=== PATIENT | male | born 1935 | race Caucasian/White ===

== ENCOUNTER 2017-07-20 06:53 | Day surgery (SDC) | payer MEDICARE, OTHER ==
[2017-07-19 10:10] LABS: BASOPHILS % (AUTO) 0.5 % (0-1); EOSINOPHILS # (AUTO) 0.2 X10'3 (0-0.9); EOSINOPHILS % (AUTO) 3.5 % (0-6); HEMATOCRIT 41.8 % (42.0-52.0); HEMOGLOBIN 14.5 g/dl (14.0-17.9); LYMPHOCYTES # (AUTO) 1.3 X10'3 (1.1-4.8); LYMPHOCYTES % (AUTO) 30.6 % (21-51); MEAN CORPUSCULAR HEMOGLOBIN 34.6 PG (27.0-31.0); MEAN CORPUSCULAR HGB CONC 34.7 % (33.0-36.5); MEAN CORPUSCULAR VOLUME 99.8 FL (78-98); MEAN PLATELET VOLUME 9.4 FL (7.4-10.4); MONOCYTES # (AUTO) 0.5 X10'3 (0-0.9); MONOCYTES % (AUTO) 10.3 % (2-12); NEUTROPHILS # (AUTO) 2.4 X10'3 (1.8-7.7); NEUTROPHILS % (AUTO) 55.1 % (42-75); PLATELET COUNT 179 X10'3 (140-440); RED BLOOD COUNT 4.19 X10'6 (4.70-6.10); RED CELL DISTRIBUTION WIDTH 13.9 % (11.5-14.5); WHITE BLOOD COUNT 4.4 X10'3 (4.5-11.0)
[2017-07-19 10:19] LABS: INR 1.4 INR
[2017-07-19 10:22] LABS: ALBUMIN 3.5 G/DL (3.4-5.0); ANION GAP 9 (8-16); BLOOD UREA NITROGEN 18 MG/DL (7-18); BUN/CREATININE RATIO 13.8 (5.4-32.0); CALCIUM 9.2 MG/DL (8.5-10.1); CHLORIDE 107 MMOL/L (99-107); GLUCOSE 160 MG/DL (70-104); POTASSIUM 4.3 MMOL/L (3.5-5.1); SODIUM 142 MMOL/L (135-145); TOTAL CARBON DIOXIDE 25.9 MMOL/L (24-32); eGFR 53 ML/MIN
[2017-07-20] VITALS (13 sets, daily range): BP systolic 120–139; BP diastolic 67–90
[~2017-07-20] VITALS: Ht 180.3 cm; Wt 84.4 kg
[2017-07-20] MEDS ORDERED: diphenhydrAMINE 25mg capsule PO ONE (07:25)
[2017-07-20] MEDS ORDERED: atropine 0.1mg/ml 10ml syringe IV ONE (07:25)
[2017-07-20] MEDS ORDERED: morphine 10mg/ml inj. IV ONE (07:25)
[2017-07-20] MEDS ORDERED: amiodarone in dextrose, iso-osm 150mg/100ml bag IV ONE (07:25)
[2017-07-20] MEDS ORDERED: normal saline 1000ml 1,000 ML IV SCH (07:25)
[2017-07-20] MEDS ORDERED: MIDAZolam 5mg/ml 2ml vial IV ONE (07:25)
[2017-07-20] MEDS ORDERED: LORazepam 0.5 MG tablet PO ONE (07:25)
[2017-07-20] MEDS ORDERED: DABI150C PO (08:28)
[2017-07-20] MEDS ORDERED: LEVO50TA8 PO (08:28)
[2017-07-20] MEDS ORDERED: ASPI-1265 PO (08:28)
[2017-07-20] MEDS ORDERED: PIOG30TA27 PO (08:28)
[2017-07-20] MEDS ORDERED: METF850T2 PO (08:28)
[2017-07-20] MEDS ORDERED: CALC600T12 PO (08:28)
[2017-07-20] MEDS ORDERED: MULT-38 PO (08:28)
[2017-07-20] MEDS ORDERED: SOTA80TA69 PO (08:28)
== END 2017-07-20 11:10 | disposition home or self-care (01) ==
LOC: SSTAY O 06:53
PROVIDERS: ATTEND Internal Medicine Cardiovascular Disease
DX: I48.1 Persistent atrial fibrillation (principal); E11.9 Type 2 diabetes mellitus without complications; E78.5 Hyperlipidemia, unspecified; F41.9 Anxiety disorder, unspecified; F32.9 Major depressive disorder, single episode, unspecified; Z79.82 Long term (current) use of aspirin; Z90.49 Acquired absence of other specified parts of digestive tract; Z79.01 Long term (current) use of anticoagulants; Z98.890 Other specified postprocedural states; Z87.891 Personal history of nicotine dependence
CPT/HCPCS: 36415; 80048; 82948; 85025; 85610; 92960; 93005; J0282; J2250; J2270; J7030; Q0163; A4620; J0461

== ENCOUNTER 2017-09-27 07:51 | Day surgery (SDC) | payer MEDICARE, OTHER ==
[2017-09-26 11:09] LABS: ALBUMIN 3.7 G/DL (3.4-5.0); ANION GAP 11 (8-16); BLOOD UREA NITROGEN 27 MG/DL (7-18); BUN/CREATININE RATIO 18.1 (5.4-32.0); CALCIUM 10.1 MG/DL (8.5-10.1); CHLORIDE 105 MMOL/L (99-107); CREATININE 1.49 MG/DL (0.60-1.10); GLUCOSE 173 MG/DL (70-104); INR 1.5 INR; PARTIAL THROMBOPLASTIN TIME 43 SECONDS (22-32); POTASSIUM 4.1 MMOL/L (3.5-5.1); PROTHROMBIN TIME 15.3 SECONDS (9.0-12.0); SODIUM 139 MMOL/L (135-145); TOTAL CARBON DIOXIDE 23.5 MMOL/L (24-32); eGFR 45 ML/MIN
[2017-09-26 11:16] LABS: BASOPHILS % (AUTO) 0.2 % (0-1); EOSINOPHILS # (AUTO) 0.1 X10'3 (0-0.9); EOSINOPHILS % (AUTO) 1.4 % (0-6); HEMATOCRIT 41.5 % (42.0-52.0); HEMOGLOBIN 14.5 g/dl (14.0-17.9); LYMPHOCYTES # (AUTO) 1.4 X10'3 (1.1-4.8); LYMPHOCYTES % (AUTO) 23.2 % (21-51); MEAN CORPUSCULAR HEMOGLOBIN 34.3 PG (27.0-31.0); MEAN PLATELET VOLUME 9.8 FL (7.4-10.4); MONOCYTES # (AUTO) 0.6 X10'3 (0-0.9); MONOCYTES % (AUTO) 9.3 % (2-12); NEUTROPHILS # (AUTO) 4.1 X10'3 (1.8-7.7); NEUTROPHILS % (AUTO) 65.9 % (42-75); PLATELET COUNT 183 X10'3 (140-440); RED BLOOD COUNT 4.23 X10'6 (4.70-6.10); RED CELL DISTRIBUTION WIDTH 14.5 % (11.5-14.5); WHITE BLOOD COUNT 6.2 X10'3 (4.5-11.0)
[~2017-09-27] VITALS: Ht 180.3 cm; Wt 77.0 kg
[2017-09-27] VITALS (11 sets, daily range): BP systolic 94–122; BP diastolic 56–86
[~2017-09-27 07:51] MED LIST: ASPI-1265 PO; CALC600T12 PO; DABI150C PO; LEVO50TA8 PO; METF850T2 PO; MULT-38 PO; PIOG30TA71 PO; SOTA80TA73 PO
[2017-09-27] MEDS ORDERED: DIPH25CA83 PO (08:09)
[2017-09-27] MEDS ORDERED: normal saline 1000ml 1,000 ML IV SCH (08:10)
[2017-09-27] MEDS ORDERED: MIDAZolam 5mg/ml 2ml vial IV ONE (08:10)
[2017-09-27] MEDS ORDERED: atropine 0.1mg/ml 10ml syringe IV ONE (08:10)
[2017-09-27] MEDS ORDERED: diphenhydrAMINE 25mg capsule PO ONE (08:10)
[2017-09-27] MEDS ORDERED: LORazepam 0.5 MG tablet PO ONE (08:10)
[2017-09-27] MEDS ORDERED: morphine 10mg/ml inj. IV ONE (08:10)
[2017-09-27] MEDS ORDERED: amiodarone 150mg/dext, iso-os 100 ML IV ONE (08:10)
== END 2017-09-27 13:20 | disposition home or self-care (01) ==
LOC: SSTAY O 07:51
PROVIDERS: ATTEND Internal Medicine Cardiovascular Disease
DX: I48.1 Persistent atrial fibrillation (principal); E78.5 Hyperlipidemia, unspecified; E11.9 Type 2 diabetes mellitus without complications; I34.0 Nonrheumatic mitral (valve) insufficiency; F32.9 Major depressive disorder, single episode, unspecified; F41.8 Other specified anxiety disorders; M19.90 Unspecified osteoarthritis, unspecified site; I45.81 Long QT syndrome; Z87.891 Personal history of nicotine dependence; Z72.89 Other problems related to lifestyle; Z79.01 Long term (current) use of anticoagulants; Z90.49 Acquired absence of other specified parts of digestive tract; Z79.84 Long term (current) use of oral hypoglycemic drugs; Z79.82 Long term (current) use of aspirin; Z79.899 Other long term (current) drug therapy; Z98.890 Other specified postprocedural states
CPT/HCPCS: 36415; 80048; 82948; 85025; 85610; 85730; 92960; 93005; J2250; J2270; J7030; Q0163; J0282; J0461

== ENCOUNTER 2019-03-13 07:51 | Day surgery (SDC) | payer MEDICARE, OTHER ==
[2019-03-12 10:09] LABS: BASOPHILS % (AUTO) 0.4 % (0-1); EOSINOPHILS # (AUTO) 0.2 X10'3 (0-0.9); EOSINOPHILS % (AUTO) 4.7 % (0-6); HEMATOCRIT 39.8 % (42.0-52.0); HEMOGLOBIN 13.5 g/dl (14.0-17.9); LYMPHOCYTES # (AUTO) 1.4 X10'3 (1.1-4.8); LYMPHOCYTES % (AUTO) 28.5 % (21-51); MEAN CORPUSCULAR HEMOGLOBIN 30.6 PG (27.0-31.0); MEAN CORPUSCULAR HGB CONC 33.8 g/dL (33.0-36.5); MEAN CORPUSCULAR VOLUME 90.5 FL (78-98); MONOCYTES # (AUTO) 0.5 X10'3 (0-0.9); NEUTROPHILS # (AUTO) 2.6 X10'3 (1.8-7.7); NEUTROPHILS % (AUTO) 55.4 % (42-75); PLATELET COUNT 200 X10'3 (140-440); RED CELL DISTRIBUTION WIDTH 13.4 % (11.5-14.5); WHITE BLOOD COUNT 4.8 X10'3 (4.5-11.0)
[2019-03-12 10:18] LABS: ALBUMIN 3.7 G/DL (3.4-5.0); ANION GAP 8 (8-16); BLOOD UREA NITROGEN 25 MG/DL (7-18); BUN/CREATININE RATIO 18.5 (5.4-32.0); CALCIUM 9.7 MG/DL (8.5-10.1); CHLORIDE 107 MMOL/L (99-107); CREATININE 1.35 MG/DL (0.60-1.10); GLUCOSE 164 MG/DL (70-104); POTASSIUM 4.3 MMOL/L (3.5-5.1); SODIUM 141 MMOL/L (135-145); TOTAL CARBON DIOXIDE 25.9 MMOL/L (24-32); eGFR 51 ML/MIN
[2019-03-13] VITALS (16 sets, daily range): BP systolic 96–138; BP diastolic 57–93
[~2019-03-13] VITALS: Ht 180.3 cm; Wt 85.0 kg
[~2019-03-13 07:51] MED LIST changes: +DIPH25CA83 PO; +METF-437 PO; -METF850T2 PO
[2019-03-13] MEDS ORDERED: diphenhydrAMINE 25mg capsule PO ONE (08:25)
[2019-03-13] MEDS ORDERED: MIDAZolam 5mg/ml 2ml vial IV ONE (08:25)
[2019-03-13] MEDS ORDERED: amiodarone in dextrose, iso-osm 150mg/100ml bag IV ONE (08:25)
[2019-03-13] MEDS ORDERED: morphine 10mg/ml inj. IV ONE (08:25)
[2019-03-13] MEDS ORDERED: LORazepam 0.5 MG tablet PO ONE (08:25)
[2019-03-13] MEDS ORDERED: atropine 0.1mg/ml 10ml syringe IV ONE (09:20)
== END 2019-03-13 13:10 | disposition home or self-care (01) ==
LOC: SSTAY O 07:51
PROVIDERS: ATTEND Internal Medicine Cardiovascular Disease
DX: I48.0 Paroxysmal atrial fibrillation (principal); E11.9 Type 2 diabetes mellitus without complications; G47.30 Sleep apnea, unspecified; F41.9 Anxiety disorder, unspecified; F32.9 Major depressive disorder, single episode, unspecified; Z98.890 Other specified postprocedural states
CPT/HCPCS: 36415; 80048; 82948; 85025; 85610; 92960; 93005; J0282; J0461; J2250; J2270; Q0163

== ENCOUNTER 2020-08-25 07:05 | Day surgery (SDC) | payer MEDICARE, OTHER ==
[2020-08-24 10:04] LABS: BASOPHILS % (AUTO) 0.5 % (0-1); EOSINOPHILS # (AUTO) 0.2 X10'3 (0-0.9); EOSINOPHILS % (AUTO) 4.4 % (0-6); HEMATOCRIT 33.4 % (42.0-52.0); HEMOGLOBIN 10.9 g/dl (14.0-17.9); LYMPHOCYTES # (AUTO) 1.1 X10'3 (1.1-4.8); LYMPHOCYTES % (AUTO) 23.1 % (21-51); MEAN CORPUSCULAR HEMOGLOBIN 26.3 PG (27.0-31.0); MEAN CORPUSCULAR HGB CONC 32.7 g/dL (33.0-36.5); MEAN CORPUSCULAR VOLUME 80.4 FL (78-98); MEAN PLATELET VOLUME 8.6 FL (7.4-10.4); MONOCYTES # (AUTO) 0.5 X10'3 (0-0.9); NEUTROPHILS # (AUTO) 2.8 X10'3 (1.8-7.7); PLATELET COUNT 184 X10'3 (140-440); RED BLOOD COUNT 4.15 X10'6 (4.70-6.10); RED CELL DISTRIBUTION WIDTH 16.2 % (11.5-14.5); WHITE BLOOD COUNT 4.6 X10'3 (4.5-11.0)
[2020-08-24 10:23] LABS: ALANINE AMINOTRANSFERASE 23 U/L (12-78); ALBUMIN 3.8 G/DL (3.4-5.0); ALBUMIN/GLOBULIN RATIO 1.2 (1.1-1.5); ALKALINE PHOSPHATASE 76 IU/L (46-116); ANION GAP 9 (8-16); ASPARTATE AMINO TRANSFERASE 14 U/L (10-37); BILIRUBIN,TOTAL 0.6 MG/DL (0.1-1.0); BLOOD UREA NITROGEN 26 MG/DL (7-18); BUN/CREATININE RATIO 19.8 (5.4-32.0); CALCIUM 9.6 MG/DL (8.5-10.1); CHLORIDE 107 MMOL/L (99-107); CREATININE 1.31 MG/DL (0.60-1.10); GLUCOSE 153 MG/DL (70-104); POTASSIUM 4.3 MMOL/L (3.5-5.1); SODIUM 140 MMOL/L (135-145); TOTAL CARBON DIOXIDE 24.3 MMOL/L (24-32); TOTAL PROTEIN 6.9 G/DL (6.4-8.2); eGFR 52 ML/MIN
[2020-08-25] VITALS (9 sets, daily range): BP systolic 101–128; BP diastolic 65–88
[~2020-08-25] VITALS: Ht 180.3 cm; Wt 77.2 kg
[~2020-08-25 07:05] MED LIST changes: -CALC600T12 PO; +CALC600T35 PO; -DIPH25CA83 PO
[2020-08-25] MEDS ORDERED: amiodarone 150mg/dext, iso-os 100 ML IV ONE (07:30)
[2020-08-25] MEDS ORDERED: morphine 10mg/ml inj. IV ONE (07:30)
[2020-08-25] MEDS ORDERED: atropine 0.1mg/ml 10ml syringe IV ONE (07:30)
[2020-08-25] MEDS ORDERED: diphenhydrAMINE 25mg capsule PO ONE (07:30)
[2020-08-25] MEDS ORDERED: MIDAZolam 1mg/ml 10ml vial IV ONE (07:30)
[2020-08-25] MEDS ORDERED: normal saline 1000ml 1,000 ML IV PRN (07:30)
[2020-08-25] MEDS ORDERED: LORazepam 0.5 MG tablet PO ONE (07:30)
[2020-08-25] MEDS ORDERED: ATOR40TA PO (08:03)
[2020-08-25] MEDS ORDERED: CALC600T45 PO (08:03)
== END 2020-08-25 12:00 | disposition home or self-care (01) ==
LOC: SSTAY O 07:05
PROVIDERS: ATTEND Internal Medicine Cardiovascular Disease
DX: I48.19 Other persistent atrial fibrillation (principal); E78.5 Hyperlipidemia, unspecified; E11.9 Type 2 diabetes mellitus without complications; G47.33 Obstructive sleep apnea (adult) (pediatric); F32.9 Major depressive disorder, single episode, unspecified; F41.9 Anxiety disorder, unspecified; I34.0 Nonrheumatic mitral (valve) insufficiency; I73.9 Peripheral vascular disease, unspecified; Z98.890 Other specified postprocedural states; Z79.84 Long term (current) use of oral hypoglycemic drugs; Z79.899 Other long term (current) drug therapy; Z87.891 Personal history of nicotine dependence; Z72.89 Other problems related to lifestyle; Z81.1 Family history of alcohol abuse and dependence; Z80.6 Family history of leukemia
CPT/HCPCS: 36415; 80053; 82948; 85025; 92960; 93005; 94799; J2250; J2270; J7030

== ENCOUNTER 2025-02-01 14:31 | Emergency (ER) | payer MEDICARE, OTHER ==
[~2025-02-01] VITALS: Ht 180.3 cm; Wt 94.9 kg
[~2025-02-01 14:31] MED LIST changes: +ATOR40TA PO; -CALC600T35 PO; +CALC600T45 PO
--- NOTE | 2025-02-01 14:53 | ELECTROCARDIOGRAPH REPORT ---
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 JULIET Hutchinson Measurements Intervals [place] Rate: 105 P: 0 MT: 0 QRS: 50 QRSD: 99 T: 0 QT: 351 QTc: 465 Interpretive Statements Atrial fibrillation Anterior infarct, old Nonspecific T abnormalities, lateral leads Electronically Signed On 02-02-2025 13:09:[address] JULIET Hutchinson Please click the below link to view image of tracing.
--- NOTE | 2025-02-01 15:26 | Physician Documentation ---
History of Present Illness ~ Chief Complaint: Mechanical Fall Stated Complaint: GROUND LEVEL FALL Time Seen by MD: 14:56 HPI The patient is an 89-year-old male with a history of paroxysmal atrial fibrillation (takes Pradaxa and aspirin) and hypertension who slipped while get ting out of the shower, falling backward and striking his head and lower back. He is complaining of severe low back pain. There was no loss of consciousness. Medication Reconciliation Allergies: Coded Allergies: No Known Allergies (Unverified , 08/11/09) Scheduled Aspirin (Aspirin), 1 TAB.CHEW PO DAILY, (Reported) Atorvastatin Calcium* (Lipitor*), 1 TAB PO DAILY, (Reported) Calcium Carbonate (Calcium), 1 TAB PO DAILY, (Reported) Dabigatran Etexilate Mesylate (Pradaxa), 1 CAP PO BID, (Reported) Levothyroxine Sodium (Levothyroxine Sodium), 1 TAB PO DAILY, (Reported) Metformin Hcl (Metformin Hcl), 1 TAB PO Q12H, (Reported) Multivitamin (Daily Multiple Vitamin), 1 TAB PO DAILY, (Reported) Pioglitazone Hcl (Pioglitazone Hcl), 1 TAB PO DAILY, (Reported) Sotalol Hcl* (Betapace*), 80 MG PO BID, (Reported) Review of Systems ROS Constitutional: Denies chills, fatigue, fever, weight gain or weight loss. HEENT: Denies hearing loss, sinus pressure or visual changes. Respiratory: Denies cough, shortness of breath or wheezing. Cardiovascular: Chronic by pedal edema and edema of the right upper extremity. Gastrointestinal: Denies abdominal pain, blood in stool, constipation, diarrhea, heartburn, loss of appetite, nausea or vomiting. Genitourinary: Denies painful urination (dysuria), excessive amount of urine (polyuria) or urinary frequency. Metabolic/Endocrine: Denies cold intolerance, heat intolerance, excessive thirst (polydipsia) or excessive hunger (polyphagia). Neurological: Denies dizziness, extremity numbness, extremity weakness, headaches, seizures or tremors. Psychiatric: Denies anxiety or depression. Integumentary: Denies breast discharge, breast lump, hives, mole change(s), rash or skin lesion. Musculoskeletal: Complaining of severe low back pain and pain posteriorly over the lower ribcage Hematologic: Denies easily bleeding, easily bruises, lymphedema or issues with blood clots. Immunologic: Denies food allergies or seasonal allergies. Physical Exam Vital Signs: Temperature: 98.3, Source: Oral, Heart Rate: 102, Respiratory Rate: 22, BP: 169/117, Pulse Oximetry: 97, Weight: 94.900 Oxygen Flow Rate: 0 Physical Exam Physical Exam Vitals and nursing note reviewed. Constitutional: General: Patient is awake, alert, oriented x 4 in no acute distress and well appearing. Speech is clear and lucid. Appearance: Normal appearance. Patient is not ill-appearing, toxic-appearing or diaphoretic. HENT: Head: Normocephalic and atraumatic. Mouth/Throat: Mouth: Mucous membranes are moist. Pharynx: Oropharynx is clear. Eyes: General: No scleral icterus. Extraocular Movements: Extraocular movements intact. Pupils: Pupils are equal, round, and reactive to light. Neck: Supple, no Kernig or Brudzinski sign. Cardiovascular: Rate and Rhythm: Normal rate and regular rhythm. Heart sounds: No murmur heard. Pulmonary: Effort: No respiratory distress. Breath sounds: No wheezing, rhonchi or rales. Abdominal: General: There is no distension. Palpations: There is no fluid wave, hepatomegaly or mass. Tenderness: There is no abdominal tenderness. There is no guarding. Musculoskeletal: General: Tenderness over the lower lumbar area and posterior lower ribcage. Skin: Coloration: Skin is not jaundiced. Findings: No erythema or rash. Neurological: Mental Status: Patient is alert. Progress Results/Orders Results/Orders Orders - DEVAUGHN BRITTON DO Hs Troponin I W Calculations (02/01/25 21:30) Completed Orders - DEVAUGHN BRITTON DO Hs Troponin I W Calculations (02/01/25 19:30) Medications Received in ER Medications (Trade) Dose Ordered Sig/Verito Route PRN Reason Start Time Stop Time Status Last Admin Dose Admin (morphine inj.) 4 mg ONCE STAT IV 02/01/25 16:11 02/01/25 16:16 DC 02/01/25 16:26 4 MG (Zofran 4mg/2ml vial) 4 mg ONCE STAT IV 02/01/25 16:11 02/01/25 16:17 DC 02/01/25 16:24 4 MG Vital Signs 02/01/25 02/01/25 02/01/25 02/01/25 14:36 14:45 16:26 16:31 Temp 98.3 Pulse 102 103 Resp 22 18 16 12 B/P (MAP) 169/117 175/133 (147) Pulse Ox 97 95 O2 Flow Rate 0 02/01/25 02/01/25 02/01/25 02/01/25 18:03 18:05 18:49 20:32 Temp 98.3 98.3 Pulse 95 106 89 Resp 16 11 12 12 B/P (MAP) 173/104 (127) 158/102 (120) 164/106 (125) Pulse Ox 95 95 95 O2 Flow Rate 0 0 Laboratory Tests Test 02/01/25 15:34 02/01/25 19:40 White Blood Count 6.6 Red Blood Count 3.87 L Hemoglobin 13.5 L Hematocrit 39.2 L Mean Corpuscular Volume 101.2 H Mean Corpuscular Hemoglobin 34.9 H Mean Corpuscular Hemoglobin Concent 34.5 Red Cell Distribution Width 14.7 H Platelet Count 158 Mean Platelet Volume 8.2 Neutrophils (%) (Auto) 78.6 H Lymphocytes (%) (Auto) 10.1 L Monocytes (%) (Auto) 9.5 Eosinophils (%) (Auto) 1.5 Basophils (%) (Auto) 0.3 Neutrophils # (Auto) 5.2 Lymphocytes # (Auto) 0.7 L Monocytes # (Auto) 0.6 Eosinophils # (Auto) 0.1 Basophils # (Auto) 0.0 CBC Comment Prothrombin Time 16.8 H INR International Normalized Ratio 1.7 Coagulation Comments Sodium Level 138 Potassium Level 4.5 Chloride Level 107 Carbon Dioxide Level 24.6 Anion Gap 6 L Blood Urea Nitrogen 26 H Creatinine 1.35 H Estimated GFR/1.73 m2 50 BUN/Creatinine Ratio 19.3 Glucose Level 154 H Lactic Acid Level 0.8 Calcium Level 9.5 Magnesium Level 1.3 L Total Bilirubin 0.8 Aspartate Amino Transf (AST/SGOT) 17 Alanine Aminotransferase (ALT/SGPT) 27 Alkaline Phosphatase 91 Pro-B-Type Natriuretic Peptide 1444 H Total Protein 7.0 Albumin 3.8 Globulin 3.2 Albumin/Globulin Ratio 1.2 Lipase 59 Chemistry Comments Troponin I High Sensitivity 6 Medical Decision Making Additional information obtaine: family Findings See additional comments for Dr. Britton's medical decision-making Differential Dx:Considerations: Include: Closed head injury, Fracture(s), I ntraabdominal injury, Pneumothorax, Cerebral contusion, Pulmonary contusion, Spine injury, Abrasion(s), Contusion(s), Hematoma(s); Unlikely: Cardiac injury, Tracheal injury, Urological injury, Vascular injury, Foreign body(s), Laceration(s), Encephalopathy Departure Disposition: 01 HOME / SELF CARE / HOMELESS Impression: Primary Impression: Ground-level fall Additional Impressions: Acute traumatic pain T12 vertebral fracture Condition: Fair Discharge Instructions: Thoracic Spine Fracture Referrals: ROSALINDA TIPTON MD 2 days Please follow-up with the neurosurgeon for your T12 fracture. Wear TLSO as instructed. Education Educated: Patient Educated regarding: diagnosis, treatment, prognosis, need for follow up Additional Comment Additional Comment Date: Feb 01, 2025 Time: 20:30 Additional note by Devaughn Britton, DO: I took over the care of this patient from previous physician. I reviewed any previous notes available, obtain my own history, review of systems and physical examination was performed by myself. In brief, this is a 89-year-old gentleman with a anticoagulation with the Pradaxa secondary to paroxysmal AFib, presented for evaluation of potential injuries sustained in a mechanical ground level fall. This is a complains of low back pain. He was signed out pending imaging. CT head shows no acute intracranial bleed. CT C-spine shows no fracture or subluxation. CT of the chest, abdomen and pelvis as well as thoracic or lumbar spine shows anterior inferior fracture of T12 with 20% height loss. Transferred to [facility] was initiated. Case was discussed with Dr. Abdiel Topete, neurosurgeon on-call he has a [place] who recommended TLSO and does not feel that transfer as necessary. Laboratory workup reviewed. CBC is normal, metabolic panel was unremarkable. BNP is slightly elevated. Troponin is negative. Incidental finding of a AAA with a CT noted. Patient is hemodynamically stable for discharge home with follow with their primary care provider. [ ] Specific and cautious return precautions provided and discussed with full understanding. Any incidental findings were also discussed and follow up recommendations given. [] All questions answered. Patient/family were able to verbalize back return precautions. Patient/family agree to plan. Copies of imaging and laboratory studies were provided. Signature Scribe Signature: No scribe Attestation: The note accurately reflects work and decisions made by me.Devaughn Britton, DO 02/01/25 20:33 BEREKET HARDING MD Feb 01, 2025 15:26 DEVAUGHN BRITTON DO Feb 01, 2025 20:35
[2025-02-01] MEDS ORDERED: iohexol 300mg/ml 100ml inj. ONE (15:31)
[2025-02-01 15:45] LABS: MEAN PLATELET VOLUME 8.2 FL (7.4-10.4); RED CELL DISTRIBUTION WIDTH 14.7 % (11.5-14.5)
[2025-02-01 15:57] LABS: INR 1.7 INR
[2025-02-01 16:19] LABS: CREATININE 1.35 MG/DL (0.60-1.10); PRO BRAIN NATRIURETIC PEPTIDE 1444 PG/ML (0-450); TOTAL CARBON DIOXIDE 24.6 MMOL/L (24-32); eCRCL 40 ML/MIN; eGFR 50 ML/MIN
[2025-02-01] MEDS: ondansetron/PF 4mg/2ml inj IV STA (16:24)
[2025-02-01] MEDS: morphine 4 MG/ML inj SYRINge IV STA (16:26)
--- NOTE | 2025-02-01 18:11 | RADIOLOGY REPORT ---
CLINICAL HISTORY: Trauma. COMPARISON: None TECHNIQUE: Axial CT images of the cervical spine were obtained without IV contrast. Coronal and sagittal reformatted images were obtained. All CT scans at this medical facility are performed using dose modulation techniques as appropriate to a performed exam including the following: Automated exposure control was utilized; adjustment of the MA and/or KV according to patient size; and use of iterative reconstruction technique. CTDIvol = 20.56 mGy DLP = 548.75 mGy-cm FINDINGS: Bones: Straightening of the normal cervical lordosis. Grade 1 anterolisthesis of C3 on C4 measures up to 3 mm. Vertebral body heights are maintained. Posterior elements are intact. No acute fracture. Multilevel severe disc space narrowing in the cervical spine with associated endplate sclerosis and endplate spurring. Areas of partial osseous fusion are seen at the C3-C4, C4-C5, and C5-C6 levels. Multilevel facet and uncinate hypertrophy with areas of moderate neural foraminal stenosis. Paraspinal soft tissues: Prevertebral and paraspinal soft tissues are unremarkable. Other: Partially visualized left pleural effusion. Dense atherosclerotic calcification at the carotid bifurcations bilaterally. IMPRESSION: 1. No evidence of acute fracture. 2. Straightening of the normal cervical lordosis. Grade 1 anterolisthesis of C3 on C4. 3. Degenerative disc disease and facet/ uncinate disease in the cervical spine as detailed above.
--- NOTE | 2025-02-01 18:13 | RADIOLOGY REPORT ---
CLINICAL INFORMATION: Trauma. Ground level fall. TECHNIQUE: Axial imaging was obtained through the brain without contrast. Coronal and sagittal reformatted images were obtained, reviewed, and stored. Images were reviewed in brain and bone windows. All CT scans at this medical facility are performed using dose modulation techniques as appropriate to a performed exam including the following: Automated exposure control was utilized; adjustment of the MA and/or KV according to patient size; and use of iterative reconstruction technique. CTDIvol = 71.54 mGy DLP = 1417.49 mGy-cm COMPARISON: None FINDINGS: There is no acute intracranial hemorrhage. No mass effect or midline shift. Scattered areas of hypoattenuation are seen in the periventricular and subcortical white matter, which are nonspecific but most likely sequelae of small vessel ischemic disease. Atrophic changes with dilation of the ventricles and widening of the sulci. Basal cisterns are patent. The calvarium is unremarkable. Paranasal sinuses and mastoid air cells are clear. IMPRESSION: 1. No CT evidence of acute intracranial abnormality. 2. Nonacute findings as described above.
--- NOTE | 2025-02-01 18:20 | RADIOLOGY REPORT ---
EXAM: CT CT CHEST ABDOMEN PELVIS IV CON W/ IV CONTRAST INDICATION: Trauma, GLF TECHNIQUE: Volumetric multidetector CT images of the chest, abdomen and pelvis were obtained after the administration of IV contrast. All CT scans at this facility use dose modulation, iterative reconstruction, and/or weight based dosing when appropriate to reduce radiation dose to as low as reasonably achievable. COMPARISON: None FINDINGS: LOWER NECK: Unremarkable LYMPH NODES/MEDIASTINUM: No abnormal lymph nodes by CT size criteria. CARDIOVASCULAR: Prominence of the main pulmonary artery, which may indicate pulmonary hypertension. Coronary artery calcifications. No pericardial effusion. LUNG PARENCHYMA/PLEURAL SPACE: Small to medium left and small right pleural effusions. Atelectasis in bilateral lung bases. Diffuse inconspicuous peribronchial thickening. CHEST WALL: Prior healed left lateral 7th rib fracture. LIVER: Normal hepatic size without suspicious focal lesion. GALLBLADDER/BILIARY TREE: No cholelithiasis. SPLEEN: Unremarkable. PANCREAS: Unremarkable. ADRENAL GLANDS: Unremarkable KIDNEYS: No hydronephrosis. BLADDER: Unremarkable for the degree distention. PELVIC ORGANS: Unremarkable. BOWEL/MESENTERY: Stomach is decompressed. [id number] stool burden. No CT evidence of bowel obstruction. ASCITES: Absent LYMPHADENOPATHY: No pathologically enlarged lymph nodes by CT size criteria VASCULATURE: Infrarenal abdominal aortic aneurysm measuring 5.5 cm. Proximal celiac artery fusiform aneurysmal dilation with prominent marginal calcification measuring up to 1.3 cm. 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 ABDOMINAL WALL: Diffuse subcutaneous adipose tissue edema. MUSCULOSKELETAL: Anterior inferior endplate scalloping with acute appearing fracture of T12 with 20 percent endplate height loss. No evidence of retropulsion. 20 percent superior endplate height loss of T11. Multifocal degenerative change of the visualized spine. IMPRESSION: 1. Acute appearing fracture of the anterior inferior endplate of T12 with 20 percent endplate height loss. 2. Age-indeterminate superior endplate height loss of T11. 3. Small to medium left and small right pleural effusions. 4. Infrarenal abdominal aortic aneurysm measuring up to 5.5 cm. 5. 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
--- NOTE | 2025-02-01 19:24 | RADIOLOGY REPORT ---
EXAM: CT CT T L SPINE INDICATION: Trauma TECHNIQUE: Axial images of the lumbar spine have been obtained along with coronal and sagittal reformatted images. CT scans at this facility use dose modulation, iterative reconstruction, and/or weight based dosing when appropriate to reduce radiation dose to as low as reasonably achievable. COMPARISON: None FINDINGS: ANATOMY: Five lumbar-type vertebral bodies are present. The most inferior well- formed disc space will be referred to as [id number] for purposes of numbering in this report. VERTEBRAL BODIES: Acute anterior inferior endplate fracture of T12 with 20 percent inferior endplate height loss. Acute fracture plane. No evidence of retropulsion. No fracture extension into the posterior elements. Minimal 10 percent superior endplate height loss of T11. SPINAL CANAL: No spinal canal narrowing. INTERVERTEBRAL DISCS: No significant posterior osteophyte complex FACETS: Multilevel mild to moderate facet arthropathy. OTHER: Severe degenerative change of the hip joints. IMPRESSION: 1. Acute anterior inferior endplate fracture of T12 with 20 percent inferior endplate height loss. 2. Minimal 10 percent superior endplate height loss of T11.
[2025-02-01 21:07] VITALS: BP 160/118; PULSE 103; RESP 14; TEMP 98.3; O2SAT 97
[2025-02-02] MEDS ORDERED: iohexol 300mg/ml 100ml inj. ONE (08:46)
== END 2025-02-01 21:45 | disposition home or self-care (01) ==
LOC: ER 14:31
DX: S22.089A Unspecified fracture of T11-T12 vertebra, initial encounter for closed fracture (principal); G89.11 Acute pain due to trauma; I25.2 Old myocardial infarction; I10 Essential (primary) hypertension; I48.0 Paroxysmal atrial fibrillation; Z79.82 Long term (current) use of aspirin; Z79.899 Other long term (current) drug therapy; Z79.84 Long term (current) use of oral hypoglycemic drugs; W18.30XA Fall on same level, unspecified, initial encounter; Y93.89 Activity, other specified; Y92.89 Other specified places as the place of occurrence of the external cause; Y99.8 Other external cause status
CPT/HCPCS: 36415; 70450; 71260; 72125; 74177; 80053; 83605; 83690; 83735; 83880; 84484; 85025; 85610; 86885; 86900; 86901; 93005; 96374; 96375; 99285; A4615; J2270; J2405; Q9967